=== PATIENT | female | born 1950 | race Caucasian/White ===

== ENCOUNTER → 2017-05-19 | Outpatient (CLI) | payer MEDICARE ==
[~2017-05-19] MED LIST: ASPI325 PO; CENTRUM SILVER1 EAC3 PO; CETI5 PO; EPIPEN0.3 MG/0.3 IM; GABA300 PO; KETO10 PO; LEVOTHYROXINE; METPHE20CR PO; NAPR220 PO; POLY500 PO; RALO60 PO; SULTRIDS PO; SYNTHROID112 MCG PO; Synthroid112 MCG PO; TRAM50 PO
== END | disposition home or self-care (01) ==
LOC: LAB EV 13:52
DX: N39.0 Urinary tract infection, site not specified (principal)
CPT/HCPCS: 87077; 87086; 87186

== ENCOUNTER → 2022-01-18 | Outpatient (CLI) | payer MEDICARE, OTHER ==
[2022-01-29 12:10] LABS: IGG P18 AB. Absent (.); IGG P23 AB. Absent (.); IGG P28 AB. Absent (.); IGG P30 AB. Absent (.); IGG P39 AB. Absent (.); IGG P41 AB. Present (.); IGG P45 AB. Absent (.); IGG P58 AB. Present (.); IGG P66 AB. Absent (.); IGG P93 AB. Present (.); IGM P23 AB. Absent (.); IGM P39 AB. Absent (.); IGM P41 AB. Absent (.); LYME IGG LB INTERP. Negative (.); LYME IGM LB INTERP. Negative (.)
== END | disposition home or self-care (01) ==
LOC: LAB 09:13 → LAB SHORT 09:13
PROVIDERS: Physician Assistant
DX: L25.9 Unspecified contact dermatitis, unspecified cause (principal); R21 Rash and other nonspecific skin eruption
CPT/HCPCS: 86617

== ENCOUNTER 2022-07-30 07:52 | Day surgery (SDC) | payer MEDICARE, OTHER ==
[~2022-07-30] VITALS: Ht 10.2 cm; Wt 67.6 kg
[2022-07-30] MEDS ORDERED: LEVSOD100 (08:06)
[2022-07-30] MEDS ORDERED: LEVSOD112 (08:06)
--- NOTE | 2022-07-30 09:13 | NUR ---
07/30/22 0913 Serenity Eaton CASE DELAYED DUE IS ONCALL AND HAD A EMERGENT CASE IN ICU. PT NOTIFIED OF DELAY, PT ASKED TO HAVE HER CONTACTED AND INFORMED OF DELAY. RN CALLED PT'S , VOICED UNDERSTANDING OF DELAY, RN STATED SHE WOULD CALL HIM WHEN PT WAS DONE WITH PROCEDURE.
[2022-07-30 11:08] VITALS: BP 137/62
== END 2022-07-30 11:05 | disposition home or self-care (01) ==
LOC: ORSCSDS 07:52
PROVIDERS: Internal Medicine Gastroenterology
PROC: 0DBK8ZX Excision of Ascending Colon, Via Natural or Artificial Opening Endoscopic, Diagnostic (ICD-10-PCS; principal; 2022-07-30 09:00)
PROC: 0DBN8ZX Excision of Sigmoid Colon, Via Natural or Artificial Opening Endoscopic, Diagnostic (ICD-10-PCS; principal; 2022-07-30 09:00)
PROC: 0DB68ZX Excision of Stomach, Via Natural or Artificial Opening Endoscopic, Diagnostic (ICD-10-PCS; principal; 2022-07-30 09:00)
DX: R13.10 Dysphagia, unspecified (principal); Z12.11 Encounter for screening for malignant neoplasm of colon; Z86.010 Personal history of colon polyps; K63.5 Polyp of colon; K20.90 Esophagitis, unspecified without bleeding; K57.30 Diverticulosis of large intestine without perforation or abscess without bleeding; K64.8 Other hemorrhoids; K29.70 Gastritis, unspecified, without bleeding; D12.2 Benign neoplasm of ascending colon; Z87.11 Personal history of peptic ulcer disease; Z79.82 Long term (current) use of aspirin; Z79.899 Other long term (current) drug therapy
CPT/HCPCS: 88305; 88342; J2704; J7120

== ENCOUNTER → 2024-10-12 | Outpatient (CLI) | payer MEDICARE, OTHER ==
[~2024-10-12] MED LIST changes: +LEVSOD100; +LEVSOD112
== END ==
LOC: LAB 07:37 → LAB SHORT 07:37
DX: B35.1 Tinea unguium (principal); L60.2 Onychogryphosis
CPT/HCPCS: 88305; 88312